=== PATIENT | female | born 1980 | race Caucasian/White ===

== ENCOUNTER 2022-01-19 21:03 | Emergency (ER) | payer OTHER ==
[2022-01-19 21:14] VITALS: BP 118/75; PULSE 90; RESP 18; TEMP 98.7
[2022-01-19] MEDS ORDERED: MORPHINE SULFATE 4 MG/ML SYRINGE IV STA (21:59)
[2022-01-19] MEDS ORDERED: ONDANSETRON 4 MG/2 ML VIAL IVP STA (21:59)
[2022-01-19] MEDS ORDERED: SODIUM CHLORIDE 0.9% 1,000 ML IV STA (21:59)
--- NOTE | 2022-01-19 22:07 | ED ---
Abdominal Pain HPI - General Chief Complaint: Abdominal Pain Stated Complaint: Swelling, SOB, ABD Swelling Time Seen by Provider: 01/19/22 21:47 Source: patient Mode of arrival: wheelchair Limitations: no limitations - History of Present Illness Initial Comments: This is a pleasant 41-year-old female with history of alcoholic cirrhosis. Patient recently moved back to [place] from [place]. It sounds that the patient had paracentesis done at [facility] in [facility]. Patient is been back in [place] for 2 weeks. Patient initially was staying with her mother and went to that facility. Patient was kept there for 7 days. It's been about 2 weeks since paracentesis now the patient has increasing abdominal pain again. Patient taking Protonix and lactulose. Patient has alcoholic cirrhosis and states she has not drank alcohol in one or 2 months. Sounds like the patient had paracentesis done in [place] as well. Patient previously has had a tubal ligation. No headache, no fever or chills, no changes in vision or hearing, no sore throat or difficulty with speech, no neck pain, no chest pain or shortness of breath, no nausea or vomiting, no changes in urination or bowel movements, no numbness or tingling, no extremity pain, no skin rashes or lesions. Past medical, surgical, social, and family history reviewed. MD Complaint: abdominal pain - Related Data Previous Rx's Medication Instructions Recorded oxyCODONE HCL 5 mg PO Q6H 3 Days #12 cap 01/20/22 Allergies Allergy/AdvReac Type Severity Reaction Status Date / Time latex Allergy Rash/Hives Verified 01/19/22 21:14 Review of Systems ROS Statement: Those systems with pertinent positive or pertinent negative responses have been documented in the HPI. ROS Other: All systems not noted in ROS Statement are negative. Past Medical History Past Medical History: Liver Disease, Renal Disease History of Any Multi-Drug Resistant Organisms: None Reported Past Surgical History: Tubal Ligation Past Psychological History: No Psychological Hx Reported Smoking Status: Current every day smoker Past Alcohol Use History: None Reported Past Drug Use History: None Reported General Exam Limitations: no limitations General appearance: alert, in distress Head exam: Present: atraumatic, normocephalic, normal inspection Eye exam: Present: normal appearance, PERRL, EOMI. Absent: scleral icterus, conjunctival injection, periorbital swelling ENT exam: Present: normal exam, mucous membranes moist, normal external ear exam. Absent: normal oropharynx, mucous membranes dry Neck exam: Present: normal inspection, full ROM. Absent: tenderness, meningismus, lymphadenopathy Respiratory exam: Present: normal lung sounds bilaterally. Absent: respiratory distress, wheezes, rales, rhonchi, stridor Cardiovascular Exam: Present: regular rate, normal rhythm, normal heart sounds. Absent: systolic murmur, diastolic murmur, rubs, gallop, clicks GI/Abdominal exam: Present: soft, distended, tenderness (Generalized), guarding, normal bowel sounds. Absent: rebound, rigid Extremities exam: Present: normal inspection, full ROM, normal capillary refill. Absent: tenderness, pedal edema, joint swelling, calf tenderness Back exam: Present: normal inspection Neurological exam: Present: alert, oriented X3, CN II-XII intact Psychiatric exam: Present: normal affect, normal mood Skin exam: Present: warm, dry, intact, normal color. Absent: rash Course Vital Signs 01/19/22 21:11 Temperature 98.7 F Pulse Rate 90 Respiratory 18 Rate Blood Pressure 118/75 O2 Sat by Pulse 100 Oximetry - Reevaluation(s) Reevaluation #1: 01/20/22 00:38 Medical record is reviewed Symptoms unchanged Patient is informed of results and questions answered Patient in no distress Reevaluation #2: 01/20/22 00:39 CT the abdomen shows moderate amount of abdominal ascites, hypodensity in the liver consistent with disease, likely cirrhosis, large kidneys without evidence of obstructio Medical Decision Making - Medical Decision Making Patient only met criteria for observation as her findings were all consistent with chronic liver disease. Patient does not have any evidence of infectious process. Patient likely will need paracentesis however her computed tomography scan shows moderate ascites. Patient was much improved after pain medication. I did agree to give the patient 3 days of pain medication. We will have her follow up with outpatient gastroenterology. I did offer admission versus discharge with the patient. Patient sent electing to be discharged. Patient is lucid, alert and oriented 4, able to make her own medical decisions. Note that the patient did ask for something for vaginal itching and dryness which apparently is chronic for the patient. Nystatin cream ordered. We'll give the patient information for gastroenterology follow-up. The case was discussed in detail with ED attending physician. Presentation, findings, treatment plan discussed in detail. Patient was told to return to the ER for any signs or symptoms worsen. Told to return immediately if any other problems arise. All questions answered. Treatment plan discussed. Patient in agreement Every effort has been made to ensure accuracy of this dictation. However, due to the limitations of electronic medical records and dictation devices, errors in charting still occur. [employer] Dr. Padilla - Lab Data Result diagrams: 01/19/22 21:25 01/19/22 21: Lab Results 01/19/22 01/19/22 01/19/22 Range/Units 21:25 21:25 21:25 WBC 11.3 H (3.8-10.6) k/uL RBC 2.81 L (3.80-5.40) m/uL Hgb 9.6 L (11.4-16.0) gm/dL Hct 29.6 L (34.0-46.0) % MCV 105.2 H (80.0-100.0) fL MCH 34.2 (25.0-35.0) pg MCHC 32.6 (31.0-37.0) g/dL RDW 16.3 H (11.5-15.5) % Plt Count 183 (150-450) k/uL MPV 8.7 Neutrophils % 58 % Lymphocytes % 30 % Monocytes % 7 % Eosinophils % 1 % Basophils % 1 % Neutrophils # 6.5 (1.3-7.7) k/uL Lymphocytes # 3.4 (1.0-4.8) k/uL Monocytes # 0.8 (0-1.0) k/uL Eosinophils # 0.1 (0-0.7) k/uL Basophils # 0.1 (0-0.2) k/uL Hypochromasia Moderate Anisocytosis Slight Macrocytosis Moderate PT 13.3 H (9.0-12.0) sec INR 1.3 H (<1.2) APTT 34.5 H (22.0-30.0) sec Sodium 134 L (137-145) mmol/L Potassium 3.5 (3.5-5.1) mmol/L Chloride 103 (98-107) mmol/L Carbon Dioxide 18 L (22-30) mmol/L Anion Gap 13 mmol/L BUN 33 H (7-17) mg/dL Creatinine 1.43 H (0.52-1.04) mg/dL Est GFR (CKD-EPI)AfAm 52 (>60 ml/min/1.73 sqM) Est GFR (CKD-EPI)NonAf 45 (>60 ml/min/1.73 sqM) Glucose 131 H (74-99) mg/dL Calcium 8.0 L (8.4-10.2) mg/dL Total Bilirubin 3.2 H (0.2-1.3) mg/dL GGT 161 H (12-43) U/L AST 60 H (14-36) U/L ALT 23 (4-34) U/L Alkaline Phosphatase 161 H (38-126) U/L Ammonia (<30) umol/L Total Protein 6.4 (6.3-8.2) g/dL Albumin 3.1 L (3.5-5.0) g/dL Lipase 314 H (23-300) U/L Serum Alcohol <10 mg/dL 01/19/22 Range/Units 21:25 WBC (3.8-10.6) k/uL RBC (3.80-5.40) m/uL Hgb (11.4-16.0) gm/dL Hct (34.0-46.0) % MCV (80.0-100.0) fL MCH (25.0-35.0) pg MCHC (31.0-37.0) g/dL RDW (11.5-15.5) % Plt Count (150-450) k/uL MPV Neutrophils % % Lymphocytes % % Monocytes % % Eosinophils % % Basophils % % Neutrophils # (1.3-7.7) k/uL Lymphocytes # (1.0-4.8) k/uL Monocytes # (0-1.0) k/uL Eosinophils # (0-0.7) k/uL Basophils # (0-0.2) k/uL Hypochromasia Anisocytosis Macrocytosis PT (9.0-12.0) sec INR (<1.2) APTT (22.0-30.0) sec Sodium (137-145) mmol/L Potassium (3.5-5.1) mmol/L Chloride (98-107) mmol/L Carbon Dioxide (22-30) mmol/L Anion Gap mmol/L BUN (7-17) mg/dL Creatinine (0.52-1.04) mg/dL Est GFR (CKD-EPI)AfAm (>60 ml/min/1.73 sqM) Est GFR (CKD-EPI)NonAf (>60 ml/min/1.73 sqM) Glucose (74-99) mg/dL Calcium (8.4-10.2) mg/dL Total Bilirubin (0.2-1.3) mg/dL GGT (12-43) U/L AST (14-36) U/L ALT (4-34) U/L Alkaline Phosphatase (38-126) U/L Ammonia 17 (<30) umol/L Total Protein (6.3-8.2) g/dL Albumin (3.5-5.0) g/dL Lipase (23-300) U/L Serum Alcohol mg/dL - Radiology Data Radiology results: report reviewed, image reviewed Disposition Clinical Impression: Abdominal pain, Ascites, Chronic liver disease, Vaginal dryness Disposition: ADMITTED IP TO THIS [facility] Condition: Stable Instructions (If sedation given, give patient instructions): Cirrhosis (ED), Ascites (ED), Abdominal Pain (ED) Additional Instructions: Follow-up with your regular physician as directed. Return to the ER immediately if any symptoms worsen, new symptoms arise, or any other problems develop. Call at 8 AM to make an appointment with a crm marketing manager. You can use the nystatin 2-3 times per day. Prescriptions: oxyCODONE HCL 5 mg PO Q6H 3 Days #12 cap Is patient prescribed a controlled substance at d/c from ED?: No Referrals: aSlma Vital MD [STAFF PHYSICIAN] - As Soon As Possible Time of Disposition: 00:39 Decision to Admit Reason: Admit from EC Decision Time: 00:39
[2022-01-19 22:16] LABS: Anisocytosis Slight; Basophils # (A) 0.1 k/uL (0-0.2); Basophils % (A) 1 %; Eosinophils # (A) 0.1 k/uL (0-0.7); Eosinophils % (A) 1 %; HCT 29.6 % (34.0-46.0); HGB 9.6 gm/dL (11.4-16.0); Hypochromasia Moderate; Lymphocytes # (A) 3.4 k/uL (1.0-4.8); Lymphocytes % (A) 30 %; MCH 34.2 pg (25.0-35.0); MCHC 32.6 g/dL (31.0-37.0); MCV 105.2 fL (80.0-100.0); Macrocytosis Moderate; Mean Platelet Volume 8.7; Monocytes # (A) 0.8 k/uL (0-1.0); Monocytes % (A) 7 %; Neutrophils # (A) 6.5 k/uL (1.3-7.7); Neutrophils % (A) 58 %; Platelet Count 183 k/uL (150-450); RBC 2.81 m/uL (3.80-5.40); RDW 16.3 % (11.5-15.5); WBC 11.3 k/uL (3.8-10.6)
[2022-01-19 22:27] LABS: ALT 23 U/L (4-34); AST 60 U/L (14-36); African American GFR (CKD) 52 (>60 ml/min/1.73 sqM); Albumin 3.1 g/dL (3.5-5.0); Alcohol <10 mg/dL; Alkaline Phosphatase 161 U/L (38-126); Anion Gap 13 mmol/L; Blood Urea Nitrogen 33 mg/dL (7-17); Carbon Dioxide 18 mmol/L (22-30); Chloride 103 mmol/L (98-107); GGT 161 U/L (12-43); Glucose 131 mg/dL (74-99); Lipase 314 U/L (23-300); Non-African American GFR(CKD) 45 (>60 ml/min/1.73 sqM); Potassium 3.5 mmol/L (3.5-5.1); Sodium 134 mmol/L (137-145); Total Bilirubin 3.2 mg/dL (0.2-1.3); Total Protein 6.4 g/dL (6.3-8.2)
[2022-01-19 22:31] LABS: INR 1.3 (<1.2); Prothrombin Time 13.3 sec (9.0-12.0)
[2022-01-19 22:32] LABS: Partial Thromboplastin Time 34.5 sec (22.0-30.0)
--- NOTE | 2022-01-19 22:38 | XR ---
EXAMINATION TYPE: XR chest 1V portable DATE OF EXAM: 01/19/2022 COMPARISON: NONE HISTORY: Abdominal pain TECHNIQUE: Single view FINDINGS: Heart and mediastinum are normal. Lungs are clear. Diaphragm is normal. Bony thorax is inta ct IMPRESSION: Normal chest.
--- NOTE | 2022-01-19 23:09 | CT ---
EXAMINATION TYPE: CT abdomen pelvis wo con DATE OF EXAM: 01/19/2022 COMPARISON: None HISTORY: Abdominal pain and swelling. Bilateral leg swelling. Yellow skin tone. Hx of liver disease CT DLP: 372.2 mGycm Automated exposure control for dose reduction was used. Images obtained from the diaphragm to the floor the pelvis with no contrast. The lung bases are clear. No pleural effusion. Heart size is normal. No pericardial effusion. There is hypodensity in the liver that could be fatty infiltration. Spleen is intact. Stomach is inta ct. No evidence of pancreatic mass. There is moderate abdominal ascites fluid. There is no adrenal mass. Kidneys appear large. No hydronephrosis. Ureters are not dilated. No retrop eritoneal adenopathy. Bladder distends smoothly. No inguinal hernia. Uterus is anteverted. The lumbar vertebrae have normal alignment. No compression fracture. Posterior elements are intact. T he bony pelvis is intact. There is some narrowing of the right hip joint space with spur formation. T here is shallow right acetabulum. There is no evidence of a bowel obstruction. No evidence of free air. Impression There is moderate abdominal ascites. Hypodensity in the liver consistent with liver disease that is l ikely cirrhosis. Large kidneys without evidence of obstruction..
[2022-01-20] MEDS ORDERED: NYSTATIN 100,000UNIT/GM CREAM 30 GM TUBE TOPICAL STA (00:58)
== END 2022-01-20 01:39 | disposition other institution (70) ==
LOC: EC 21:03
DX: K76.9 Liver disease, unspecified (principal); N95.2 Postmenopausal atrophic vaginitis; R18.8 Other ascites; F17.200 Nicotine dependence, unspecified, uncomplicated; Z91.040 Latex allergy status
CPT/HCPCS: 36415; 80053; 82140; 82977; 83690; 85025; 85610; 85730; 80320; 71045; 74176; 99285; 96374; 96375; 96361 ×2; J2270; J2405; 93005; 99284